=== PATIENT | male | born 1980 | race African-American/Black ===

== ENCOUNTER 2022-07-22 10:06 | Emergency (ER) | payer MEDICAID ==
[~2022-07-22] VITALS: Ht 182.9 cm; Wt 90.0 kg
[2022-07-22] MEDS ORDERED: LORAZEPAM 2MG/ML CPJ ONE (10:10)
[2022-07-22] MEDS ORDERED: LORAZEPAM 2MG/ML CPJ IV ONE (10:15)
[2022-07-22] MEDS ORDERED: MIDAZOLAM HCL 2 MG/2 ML VIAL IM ONE (10:15)
[2022-07-22] MEDS ORDERED: SODIUM CHLORIDE 0.9% 1,000 ML IV ONE (10:15)
[2022-07-22] MEDS ORDERED: LEVETIRACETAM 1000MG PREMIX 100 ML IV ONE (10:15)
[2022-07-22 11:09] LABS: BASOPHILS % 0.9 % (0.0-2.0); HEMATOCRIT. 48.4 % (42.0-52.0); HEMOGLOBIN. 15.7 g/dL (14.0-18.0); LYMPHOCYTES % 28.6 % (20.0-50.0); MEAN CORPUSCULAR HEMOGLOBIN 30.6 pg (28.0-32.0); MEAN CORPUSCULAR VOLUME 94.5 fL (80.0-94.0); MONOCYTES % 8.1 % (2.0-8.0); NEUTROPHILS % 60.4 % (40.0-76.0); PLATELET 230 x1000/uL (130-400); RED BLOOD CELL COUNT 5.12 mill/uL (4.7-6.1); RED CELL DISTRIBUTION WIDTH 14.5 % (11.6-14.6)
[2022-07-22 11:17] LABS: CHLORIDE 111 mEq/L (98-107)
[2022-07-22 11:24] LABS: ETHANOL BLOOD < 10 mg/dL
[2022-07-22] MEDS ORDERED: KEPP500 MT (13:24)
[2022-07-22 13:43] VITALS: BP 141/74
== END 2022-07-22 13:55 | disposition home or self-care (01) ==
LOC: EDBD 10:06 → ER 10:06
DX: R56.9 Unspecified convulsions (principal)
CPT/HCPCS: 36415; 71045; 80053; 80320; 85025; 93005; 96365; 96372; 99285; J1953; J2250; J7030; Z7610; J2060; G0480

== ENCOUNTER 2022-10-21 20:54 | Inpatient (IN) | payer MEDICAID ==
[~2022-10-21] VITALS: Ht 188 cm; Wt 88.0 kg
[~2022-10-21 20:54] MED LIST: KEPP500 MT
[2022-10-21] MEDS ORDERED: ACETAMINOPHEN 325MG TABLET PO STA (22:56)
[2022-10-21] MEDS ORDERED: DIVALPROEX SODIUM 500MG DR TABLET PO ONE (23:00)
[2022-10-21] MEDS ORDERED: PHENYTOIN SODIUM EXTENDED 100MG CAPSULE PO ONE (23:00)
[2022-10-22 00:42] LABS: MEAN CORPUSCULAR HEMOGLOBIN 30.5 pg (28.0-32.0); MEAN CORPUSCULAR VOLUME 91.7 fL (80.0-94.0); RED BLOOD CELL COUNT 5.24 mill/uL (4.7-6.1); RED CELL DISTRIBUTION WIDTH 13.1 % (11.6-14.6)
[2022-10-22 00:50] LABS: CHLORIDE 102 mEq/L (98-107)
[2022-10-22 01:02] LABS: CLARITY URINE CLEAR (CLEAR); COLOR URINE YELLOW (YELLOW); KETONES URINE NEGATIVE (NEGATIVE); LEUKOCYTE ESTERASE URINE NEGATIVE (NEGATIVE); NITRITE URINE NEGATIVE (NEGATIVE); OCCULT BLOOD URINE NEGATIVE (NEGATIVE); PH URINE 6.5 (4.5-8.0); PROTEIN URINE NEGATIVE (NEGATIVE); SPECIFIC GRAVITY URINE 1.011 (1.005-1.030); UROBILINOGEN URINE 0.2 E.U./dL (0.2-1.0)
[2022-10-22 01:08] LABS: CREATINE KINASE 169 IU/L (39-308)
[2022-10-22] MEDS ORDERED: SODIUM CHLORIDE 0.9% 1000ML BAG (SEPSIS BOLUS) IV NR (01:30)
[2022-10-22] MEDS: VANCOMYCIN 1G PREMIX 200 ML IV NR (01:30)
[2022-10-22] MEDS ORDERED: PIPERACILLIN/TAZOBACTAM 3.375GM/50ML PREMIX IV NR (01:30)
[2022-10-22 04:02] LABS: INR 1.1; PROTHROMBIN TIME 11.9 sec (9.6-11.0)
[2022-10-22 07:46] LABS: PLATELET ESTIMATE NORMAL
[2022-10-22 07:47] LABS: MEAN PLATELET VOLUME 9.9 fl (7.4-10.4); PLATELET 208 x1000/uL (130-400)
[2022-10-22] MEDS ORDERED: IPRATROPIUM/ALBUTEROL 0.5-3(2.5)MG/3ML NEB NEB PRN (08:15)
[2022-10-22] MEDS ORDERED: ACETAMINOPHEN 325MG TABLET PO PRN ×2 (08:15)
[2022-10-22] MEDS ORDERED: CLONIDINE 0.1MG TABLET PO PRN (08:15)
[2022-10-22] MEDS ORDERED: MAGNESIUM/ALUMINUM HYDROXIDE/SIMETHICONE 30ML UDC PO PRN (08:15)
[2022-10-22] MEDS ORDERED: ONDANSETRON HCL 4MG/2ML INJ IV PRN (08:15)
[2022-10-22] MEDS ORDERED: NALOXONE HCL 0.4MG/ML VIAL IV PRN (08:30)
[2022-10-22 15:00] VITALS: BP 133/65
[2022-10-22 16:00] VITALS: BP 120/61
[2022-10-22 16:22] LABS: CHLORIDE 105 mEq/L (98-107)
[2022-10-22] MEDS ORDERED: POTASSIUM CHLORIDE 20MEQ/PACKET PO NR (16:45)
[2022-10-22] MEDS ORDERED: VANCOMYCIN 1500MG in DEXTROSE 5% WATER 250ML IV NR (17:00)
[2022-10-22] MEDS ORDERED: KCL 20MEQ/100ML PREMIX 100 ML IV NR (17:30)
[2022-10-22] MEDS: PIPERACILLIN/TAZOBACTAM 3.375 G in DEXTROSE 5% WATER 50 ML IV SCH (18:00)
[2022-10-22 20:00] VITALS: BP 132/72
[2022-10-22] MEDS: HYDROCODONE/ACETAMINOPHEN 5/325MG TABLET PO PRN (21:22)
[2022-10-22] MEDS: VALPROIC ACID 250MG CAPSULE PO SCH (23:39)
[2022-10-22] MEDS: PHENYTOIN SODIUM EXTENDED 100MG CAPSULE PO SCH (23:40)
[2022-10-23] VITALS (8 sets, daily range): BP systolic 118–157; BP diastolic 60–138
[2022-10-23] MEDS: SODIUM CHLORIDE 0.9% 1,000 ML IV SCH ×5 (01:45→21:45)
[2022-10-23] MEDS: PHENYTOIN SODIUM EXTENDED 100MG CAPSULE PO SCH ×3 (06:11→22:00)
[2022-10-23] MEDS: VALPROIC ACID 250MG CAPSULE PO SCH ×3 (06:11→22:00)
[2022-10-23] MEDS: VANCOMYCIN 1G PREMIX 200 ML IV NR (06:11)
[2022-10-23] MEDS: VANCOMYCIN 1G PREMIX 200 ML IV SCH ×4 (06:12→18:09)
[2022-10-23] MEDS: PIPERACILLIN/TAZOBACTAM 3.375 G in DEXTROSE 5% WATER 50 ML IV SCH ×3 (07:00→21:00)
[2022-10-23] MEDS: PANTOPRAZOLE 40MG DR TABLET PO SCH (07:30)
[2022-10-23] MEDS: ENOXAPARIN 40MG/0.4ML SYR SUBCUT SCH ×2 (09:00→09:58)
[2022-10-23] MEDS: HYDROCODONE/ACETAMINOPHEN 5/325MG TABLET PO PRN (12:23)
[2022-10-23 16:57] LABS: BASOPHILS % 0.4 % (0.0-2.0); EOSINOPHILS % 2.3 % (0.0-5.0); HEMATOCRIT. 39.8 % (42.0-52.0); HEMOGLOBIN. 13.7 g/dL (14.0-18.0); LYMPHOCYTES % 18.7 % (20.0-50.0); MEAN CORPUSCULAR VOLUME 89.8 fL (80.0-94.0); MEAN PLATELET VOLUME 10.2 fl (7.4-10.4); MONOCYTES % 9.7 % (2.0-8.0); NEUTROPHILS % 68.9 % (40.0-76.0); PLATELET 190 x1000/uL (130-400); RED BLOOD CELL COUNT 4.43 mill/uL (4.7-6.1); RED CELL DISTRIBUTION WIDTH 13.1 % (11.6-14.6)
[2022-10-23] MEDS ORDERED: POTASSIUM CHLORIDE 20MEQ/PACKET PO NR (17:00)
[2022-10-23 17:23] LABS: CHLORIDE 104 mEq/L (98-107)
[2022-10-23 17:33] LABS: CREATINE KINASE 76 IU/L (39-308)
[2022-10-24] VITALS: BP 126/59
[2022-10-24 04:00] VITALS: BP 140/80
[2022-10-24] MEDS: VALPROIC ACID 250MG CAPSULE PO SCH ×2 (05:06→14:54)
[2022-10-24] MEDS: PHENYTOIN SODIUM EXTENDED 100MG CAPSULE PO SCH ×2 (05:06→14:54)
[2022-10-24] MEDS: PIPERACILLIN/TAZOBACTAM 3.375 G in DEXTROSE 5% WATER 50 ML IV SCH ×2 (05:06→14:54)
[2022-10-24] MEDS: SODIUM CHLORIDE 0.9% 1,000 ML IV SCH ×2 (07:45→17:45)
[2022-10-24 08:00] VITALS: BP 138/82
[2022-10-24] MEDS: HYDROCODONE/ACETAMINOPHEN 5/325MG TABLET PO PRN (09:41)
[2022-10-24] MEDS: PANTOPRAZOLE 40MG DR TABLET PO SCH (09:41)
[2022-10-24] MEDS: ENOXAPARIN 40MG/0.4ML SYR SUBCUT SCH (09:42)
[2022-10-24] MEDS ORDERED: POTASSIUM CHLORIDE 20MEQ/PACKET PO ONE (10:00)
[2022-10-24 12:00] VITALS: BP 133/80
[2022-10-24] MEDS ORDERED: VALP250C3 PO (13:42)
[2022-10-24] MEDS ORDERED: PHEN100C4 PO (13:42)
[2022-10-24 16:00] VITALS: BP 129/79
[2022-10-24 16:11] LABS: BASOPHILS % 0.4 % (0.0-2.0); EOSINOPHILS % 2.3 % (0.0-5.0); HEMATOCRIT. 40.8 % (42.0-52.0); HEMOGLOBIN. 13.9 g/dL (14.0-18.0); LYMPHOCYTES % 19.5 % (20.0-50.0); MEAN CORPUSCULAR HEMOGLOBIN 30.7 pg (28.0-32.0); MEAN CORPUSCULAR VOLUME 90.2 fL (80.0-94.0); MEAN PLATELET VOLUME 9.8 fl (7.4-10.4); MONOCYTES % 10.9 % (2.0-8.0); NEUTROPHILS % 66.9 % (40.0-76.0); PLATELET 205 x1000/uL (130-400); RED BLOOD CELL COUNT 4.52 mill/uL (4.7-6.1); RED CELL DISTRIBUTION WIDTH 12.9 % (11.6-14.6)
[2022-10-24 17:27] VITALS: BP 133/79
[2022-10-24] MEDS ORDERED: PHENYTOIN SODIUM EXTENDED 100MG CAPSULE PO ONE (21:15)
[2022-10-25 01:17] LABS: CHLORIDE 109 mEq/L (98-107)
[2022-10-25 23:29] LABS: HEPATITIS B SURFACE ANTIGEN NEGATIVE
== END 2022-10-24 21:05 | disposition home or self-care (01) | DRG 720 ==
LOC: ER 20:54 → 5EST 10-22 02:14 → SUPCPDRO 10-22 07:27 → ENRESERV 10-22 11:32 → 7WST 10-23 23:39
PROVIDERS: ADMIT Internal Medicine; ATTEND Internal Medicine
PROC: 4A00X4Z Measurement of Central Nervous Electrical Activity, External Approach (ICD-10-PCS; principal; 2022-10-23)
DX: A41.9 Sepsis, unspecified organism (principal); E46 Unspecified protein-calorie malnutrition; E88.09 Other disorders of plasma-protein metabolism, not elsewhere classified; G81.94 Hemiplegia, unspecified affecting left nondominant side; S06.9XAS Unspecified intracranial injury with loss of consciousness status unknown, sequela; Z20.822 Contact with and (suspected) exposure to COVID-19; G40.909 Epilepsy, unspecified, not intractable, without status epilepticus; E87.6 Hypokalemia; F17.210 Nicotine dependence, cigarettes, uncomplicated; Z79.899 Other long term (current) drug therapy; Z59.00 Homelessness unspecified; J22 Unspecified acute lower respiratory infection; Z68.24 Body mass index [BMI] 24.0-24.9, adult
CPT/HCPCS: 36415; 74176; 80048; 80053; 80076; 80165; 80185; 80202; 81003; 82248; 82550; 83605; 84145; 84484; 85025; 86705; 86709; 86803; 87340; 87426; 87804; 95816; 97162; 99285; C9803; J1650; J2543; J3370; J3480; J7030; J7060

== ENCOUNTER 2023-02-05 04:52 | Emergency (ER) | payer MEDICAID ==
[~2023-02-05] VITALS: Ht 195.6 cm; Wt 127.0 kg
[~2023-02-05 04:52] MED LIST changes: -KEPP500 MT; +PHEN100C4 PO; +VALP250C3 PO
[2023-02-05 05:05] VITALS: BP 155/81
== END 2023-02-05 08:12 | disposition left against medical advice (07) ==
LOC: ER 05:19
DX: Z53.21 Procedure and treatment not carried out due to patient leaving prior to being seen by health care provider (principal)
CPT/HCPCS: 99281